=== PATIENT | male | born 1970 | race Caucasian/White ===

== ENCOUNTER 2017-07-03 21:53 | Emergency (ER) | payer OTHER ==
[2017-07-03 22:17] VITALS: BP 145/87; BMI 25.7
--- NOTE | 2017-07-03 22:33 | PDOC ---
History of Present Illness - General History Source: Patient Exam Limitations: No Limitations - History of Present Illness Initial Comments: 07/03/17 22:38 The patient is a 47 year old male with no significant past medical history who presents to the ED complaining of approximately 3 days of fever, headache, and cough. He describes his cough as nonproductive. He denies cigarette smoking, sick contacts, or recent travel. His headache is frontal, pressure like in nature, with no radiation. He states he took Tylenol at approximately 3 PM today with minimal relief. He did not measure his temperature at home, but is noted to be febrile to 102.7 on ED arrival. The patient denies wheezing or hemoptysis. He denies neck pain. He denies nausea, vomiting, or diarrhea. He denies chest pain or shortness of breath. He denies visual changes, numbness, tingling, or focal weakness. <Trisha Hein - Last Filed: 07/03/17 23:58> - General History Source: Patient <Cooper Hughes - Last Filed: 07/04/17 00:04> - General Chief Complaint: Respiratory Stated Complaint: FEVER Time Seen by Provider: 07/03/17 22:27 Past History <Trisha Hein - Last Filed: 07/03/17 23:58> - Psycho/Social/Smoking Cessation Hx Suicidal Ideation: No Smoking History: Never smoked Have you smoked in the past 12 months: No Information on smoking cessation initiated: No Hx Alcohol Use: No Drug/Substance Use Hx: No <Cooper Hughes - Last Filed: 07/04/17 00:04> - Past Medical History Allergies/Adverse Reactions: Allergies Allergy/AdvReac Type Severity Reaction Status Date / Time No Known Allergies Allergy Verified 07/03/17 22:16 Home Medications: Ambulatory Orders Acetaminophen [Tylenol] 650 mg PO PRN 07/03/17 Amox-Tr/K Cl [Augmentin 875Mg Tablet] 1 tab PO BID #20 tablet 07/03/17 Ibuprofen 800 mg PO TID #30 tablet 07/03/17 Review of Systems - Review of Systems Able to Perform ROS?: Yes Comments:: 07/03/17 22:41 GENERAL/CONSTITUTIONAL: +Fever (102.7 on arrival) No weakness. HEAD, EYES, EARS, NOSE AND THROAT: No change in vision. No ear pain or discharge. No sore throat CARDIOVASCULAR: No chest pain or shortness of breath. RESPIRATORY: +Nonproductive cough. No wheezing or hemoptysis. GASTROINTESTINAL: No nausea, vomiting, diarrhea or constipation. GENITOURINARY: No dysuria, frequency, or change in urination. MUSCULOSKELETAL: No joint or muscle swelling or pain. No neck or back pain. SKIN: No rash NEUROLOGIC: +Headache. No vertigo, loss of consciousness, or change in strength/ sensation. ENDOCRINE: No increased thirst. No abnormal weight change. HEMATOLOGIC/LYMPHATIC: No anemia, easy bleeding, or history of blood clots. ALLERGIC/IMMUNOLOGIC: No hives or skin allergy. <Trisha Hein - Last Filed: 07/03/17 23:58> *Physical Exam - Vital Signs Last Vital Signs Temp Pulse Resp BP Pulse Ox 102.9 F H 110 H 18 145/87 94 L 07/03/17 22:13 07/03/17 22:13 07/03/17 22:13 07/03/17 22:13 07/03/17 22:13 - Physical Exam Comments: 07/03/17 22:42 GENERAL: Awake, alert, and fully oriented, in no acute distress. +Warm to touch. HEAD: No signs of trauma. +Frontal and maxillary sinus tenderness. EYES: PERRLA, EOMI, sclera anicteric, conjunctiva clear ENT: Auricles normal inspection, hearing grossly normal, nares patent, oropharynx clear without exudates. Moist mucosa. Tenderness as noted in HEAD. NECK: Normal ROM, supple, no lymphadenopathy, JVD, or masses LUNGS: Breath sounds equal, clear to auscultation bilaterally. No wheezes, and no crackles HEART: Regular rate and rhythm, normal S1 and S2, no murmurs, rubs or gallops ABDOMEN: Soft, nontender, normoactive bowel sounds. No guarding, no rebound. No masses EXTREMITIES: Normal range of motion, no edema. No clubbing or cyanosis. No cords, erythema, or tenderness NEUROLOGICAL: Cranial nerves II through XII grossly intact. Normal speech, normal gait SKIN: Warm, Dry, normal turgor, no rashes or lesions noted. <Trisha Hein - Last Filed: 07/03/17 23:58> - Vital Signs Last Vital Signs Temp Pulse Resp BP Pulse Ox 102.9 F H 110 H 18 145/87 94 L 07/03/17 22:13 07/03/17 22:13 07/03/17 22:13 07/03/17 22:13 07/03/17 22:13 <Cooper Hughes - Last Filed: 07/04/17 00:04> ED Treatment Course - RADIOLOGY Radiology Studies Ordered: 07/03/17 23:58 CT of head without contrast, read and reviewed by Dr. Guzman, shows no evidence of acute intracranial pathology. The partially imaged paranasal sinuses demonstrate no opacification. <Trisha Hein - Last Filed: 07/03/17 23:58> Medical Decision Making - Medical Decision Making 07/03/17 23:39 Dr. Hughes: The scribe's documentation has been prepared under my direction and personally reviewed by me in its entirery. I confirm that the note above accurately reflects all work, treatment, procedures, and medical decision making performed by me. Pt treated for clinical sinusitis as head ct scan was negative for any pathology. Pt with no nuchal rigidity. Neurologically intact. Rx Augmentin 875mg PO Pt advised to follow up with his PCP. <Cooper Hughes - Last Filed: 07/04/17 00:04> *DC/Admit/Observation/Transfer - Attestations Scribe Attestion: 07/03/17 22:43 Documentation prepared by Trisha Hein, acting as medical billing clerk for Cooper Hughes DO. <Trisha Hein - Last Filed: 07/03/17 23:58> - Discharge Dispostion Admit: No <Cooper Hughes - Last Filed: 07/04/17 00:04> Diagnosis at time of Disposition: Fever Qualifiers: Fever type: unspecified Qualified Code(s): R50.9 - Fever, unspecified Headache Qualifiers: Headache type: unspecified Headache chronicity pattern: acute headache Intractability: not intractable Qualified Code(s): R51 - Headache - Discharge Dispostion Disposition: HOME Condition at time of disposition: Stable - Prescriptions Prescriptions: Amox-Tr/K Cl [Augmentin 875Mg Tablet] 1 tab PO BID #20 tablet Ibuprofen 800 mg PO TID #30 tablet - Patient Instructions Printed Discharge Instructions: DI for Fever (Symptom) -- Adult, DI for Headache Additional Instructions: Please follow up with your doctor in the next few days if symptoms get better despite current treatment. Drink plenty of fluids.
[2017-07-03] MEDS ORDERED: IBUPROFEN 400 MG TABLET (FP) PO ONE ×2 (22:34→22:46)
[2017-07-03] MEDS ORDERED: AMOX TR/POT CLAV 875MG/125MG TABLETS (FP) PO STA (23:36)
[2017-07-04] VITALS: PULSE 89; TEMP 98.5
== END 2017-07-04 | disposition home or self-care (01) ==
LOC: JER 21:53
DX: R50.9 Fever, unspecified (principal); R51 Headache
CPT/HCPCS: 70450-TC; 99281-25

== ENCOUNTER 2020-12-12 10:17 | Emergency (ER) | payer OTHER ==
[2020-12-12 10:28] VITALS: BP 131/100; PULSE 88; TEMP 97.2; BMI 27.7
[2020-12-12] MEDS ORDERED: METHOCARBAMOL 500 MG TABLET PO ONE (11:05)
[2020-12-12] MEDS ORDERED: KETOROLAC TROMETHAMINE 60 MG/2 ML VIAL IM ONE (11:05)
[2020-12-12] MEDS ORDERED: KETOROLAC TROMETHAMINE 60 MG/2 ML VIAL ONE (11:27)
[2020-12-12] MEDS ORDERED: METHOCARBAMOL 500 MG TABLET ONE (11:27)
[2020-12-12] MEDS ORDERED: LIDOCAINE 5% TOPICAL PATCH TP ONE (11:59)
[2020-12-12] MEDS ORDERED: LIDOCAINE 5% TOPICAL PATCH ONE (12:00)
== END 2020-12-12 12:50 | disposition home or self-care (01) ==
LOC: JERFT 10:17
PROC: 3E0233Z Introduction of Anti-inflammatory into Muscle, Percutaneous Approach (ICD-10-PCS; principal; 2020-12-12)
DX: M62.830 Muscle spasm of back (principal)
CPT/HCPCS: 72100-TC-FY; 99284-25